=== PATIENT | female | born 2000 | race Caucasian/White ===

== ENCOUNTER → 2025-04-14 | Outpatient (CLI) | payer BC, SELFPAY ==
[2025-04-14 13:18] LABS: Collection Type, Urine Clean Catch
[2025-04-14 13:44] LABS: Basophils # (Auto) 0.0 Thou/mm3 (0.0-0.2); Basophils % (Auto) 0 % (0-2.5); Eosinophils # (Auto) 0.1 Thou/mm3 (0.0-0.5); Eosinophils % (Auto) 1 % (0-10); Hematocrit 36.7 % (36.0-46.0); Hemoglobin 12.3 g/dL (12.0-16.0); Immature Granulocytes Auto 0.01 Thou/mm3 (0.00-0.00); Lymphocytes # (Auto) 2.2 Thou/mm3 (1.0-4.8); Lymphocytes % (Auto) 33 % (10-50); Mean Corpuscular HGB Conc 33.5 g/dl (31.0-37.0); Mean Corpuscular Hemoglobin 30.8 pg (25.0-35.0); Mean Corpuscular Volume 92 fL (80-100); Monocytes # (Auto) 0.3 Thou/mm3 (0.0-0.8); Monocytes % (Auto) 5 % (0-12); Neutrophils # (Auto) 4.1 Thou/mm3 (1.8-7.7); Neutrophils % (Auto) 61 % (37-80); Nucleated Red Blood Cell # 0.00 Thou/mm3 (0.00-0.00); Nucleated Red Blood Cell % 0 /100 WBC (0); Platelet Count 278 Thou/mm3 (140-440); RDW Standard Deviation 44.0 fL (36.4-46.3); Red Blood Count 4.00 Miln/mm3 (4.00-5.20); White Blood Count 6.7 Thou/mm3 (3.6-11.0)
[2025-04-14 13:49] LABS: Alanine Aminotransferase 12 U/L (10-49); Albumin, Serum 5.1 gm/dL (3.5-5.0); Albumin/Globulin Ratio 3.6 (1.2-2.2); Alkaline Phosphatase 56 U/L (46-116); Anion Gap 8 (7-16); Aspartate Amino Transferase 24 U/L (0-34); BUN/Creatinine Ratio 11 Ratio (12-20); Bilirubin,Total 0.8 mg/dL (0.3-1.2); Blood Urea Nitrogen 9 mg/dL (9-23); Calcium 9.5 mg/dL (8.3-10.6); Calcium (Corrected) 9.5 mg/dL (8.5-10.1); Carbon Dioxide 28.7 mMol/L (20.0-31.0); Cardiac Risk Estimate 2.4 RATIO (3.7-5.6); Chloride 105 mMol/L (98-107); Cholesterol 151 mg/dL (132-200); Creatinine (Component) 0.8 mg/dL (0.6-1.3); Follicle Stimulating Hormone 7.51 mIU/mL (See Note); Free T4 (Free Thyroxine) 1.54 ng/dL (0.89-1.76); Globulin 1.4 gm/dL (2.3-3.5); Glucose 87 mg/dL (74-106); HDL Cholesterol 62 mg/dL (40-60); LDL Cholesterol,Calculated 82 mg/dL (0-130); Osmolality,Calculated 280 (275-295); Potassium 3.9 mMol/L (3.4-5.1); Sodium 142 mMol/L (136-145); Thyroid Stimulating Hormone 1.41 uIU/mL (0.55-4.78); Total Protein 6.5 gm/dL (5.7-8.2); Triglycerides 35 mg/dL (30-150); Vitamin D 25 Hydroxy Total 23.8 ng/mL (7.3-40.2); eGFR > 60 See Note
[2025-04-14 14:05] LABS: Syphilis Nonreactive (Nonreactive)
[2025-04-14 14:08] LABS: Bilirubin,Urine Negative (Negative); Blood,Urine 3+ (Negative); Clarity,Urine Clear (Clear/Hazy); Color,Urine Lt-Yellow (Lt Yel-Yel); Culture Indicated,Urine Not Indicated; Glucose, Urine Negative (Negative); Ketones,Urine 1+ (Negative); Leukocyte Esterase,Urine Negative (Negative); Nitrite,Urine Negative (Negative); PH,Urine 5.0 (5.0-7.0); Protein,Urine Negative (Neg - Trace); RBC,Urine 11 /hpf (0-3); Specific Gravity,Urine 1.026 (1.001-1.035); Squamous Epithelial Cell,Urine 4 /hpf (0-5); Urobilinogen,Urine Negative mg/dL (0.0-1.0); WBC,Urine 1 /hpf (0-5)
[2025-04-14 16:18] LABS: HIV (1&2) Antibody Rapid Non-Reactive
[2025-04-25 06:58] LABS: Estradiol, Ultrasensitive* 54 pg/mL; Luteinizing Hormone* 3.1 mIU/mL; Progesterone,LC/MS* 0.3 ng/mL; Testosterone, Free,Dialysis 2.3 pg/mL (0.1-6.4); Testosterone, Total, Dialysis 30 ng/dL (2-45)
== END | disposition home or self-care (01) ==
LOC: COPL 12:48
PROVIDERS: PCP Registered Nurse; Referring Provider Registered Nurse; Visit Provider Registered Nurse
DX: Z00.00 Encounter for general adult medical examination without abnormal findings (principal); N92.6 Irregular menstruation, unspecified; N94.10 Unspecified dyspareunia; Z11.3 Encounter for screening for infections with a predominantly sexual mode of transmission
CPT/HCPCS: 36415; 80053; 80061; 81001; 82306; 82670; 83001; 83002; 84144; 84402; 84403; 84439; 84443; 85025; 86703; 86780

== ENCOUNTER → 2025-04-14 | Outpatient (CLI) | payer BC, MEDICAID, SELFPAY ==
--- NOTE | 2025-04-14 15:30 | XR_ITS ---
Examination: Transvaginal ultrasound of the pelvis, complete Technique: Transvaginal sonographic images pelvis performed using emanuel scale imaging Exam date and time: April 14, 2025, 1549 hours INDICATIONS: Irregular heavy vaginal bleeding months. FINDINGS: Uterus 8.3 cm no intrauterine gestation or uterine mass Endometrial stripe 0.4 cm Right ovary obscured by bowel gas Left ovary 3.4 cm arterial flow small follicles IMPRESSION: No uterine mass or intrauterine gestation.
== END | disposition home or self-care (01) ==
LOC: CDIM 15:07
PROVIDERS: PCP Family Medicine; Referring Provider Registered Nurse; Visit Provider Registered Nurse
DX: N92.6 Irregular menstruation, unspecified (principal); N94.10 Unspecified dyspareunia
CPT/HCPCS: 76830